=== PATIENT | male | born 1995 | race Caucasian/White ===

== ENCOUNTER 2021-01-08 13:35 | Emergency (ER) | payer SELFPAY ==
[2021-01-08 13:56] VITALS: BP 131/87; PULSE 93
[2021-01-08 14:59] LABS: CHLORIDE,CL 105 mEq/L (98-106); SODIUM,NA 141 mEq/L (136-145)
--- NOTE | 2021-01-08 15:00 | EDM.PDOC ---
ED HPI GENERAL MEDICAL PROBLEM - General Chief Complaint: General Stated Complaint: fentanyl addiction Time Seen by Provider: 01/08/21 14:05 Source of Information: Reports: Patient History Limitations: Reports: No Limitations - History of Present Illness INITIAL COMMENTS - FREE TEXT/NARRATIVE: This patient is a 25 year old male that reports he is here for help. He reports that he uses Fentanyl with his mother daily and they smoke it. He has been using over a year. Patient denies quiroz, dizziness, n, v, d, f, chest pain, shortness of breath. Denies homicidal or suicidal ideations. Onset: Other (1 year) Severity: Mild Improves with: Reports: None Worsens with: Reports: None Associated Symptoms: Reports: No Other Symptoms - Related Data Allergies Allergy/AdvReac Type Severity Reaction Status Date / Time Sulfa (Sulfonamide Allergy Cannot Verified 01/08/21 13:53 Antibiotics) Remember Home Meds: Home Meds . [No Known Home Meds] 12/16/15 [History] Past Medical History Psychiatric History: Reports: Anxiety, Depression, Other (See Below) Other Psychiatric History: suicidal thoughts - Past Surgical History HEENT Surgical History: Reports: Adenoidectomy, Tonsillectomy Social & Family History - Family History Cardiac: Reports: Hypertension - Living Situation & Occupation Living situation: Reports: with Family ED ROS GENERAL - Review of Systems Review Of Systems: See Below Constitutional: Reports: No Symptoms HEENT: Reports: No Symptoms Respiratory: Reports: No Symptoms Cardiovascular: Reports: No Symptoms Endocrine: Reports: No Symptoms GI/Abdominal: Reports: No Symptoms : Reports: No Symptoms Musculoskeletal: Reports: No Symptoms Skin: Reports: No Symptoms Neurological: Reports: No Symptoms Psychiatric: Reports: No Symptoms Hematologic/Lymphatic: Reports: No Symptoms Immunologic: Reports: No Symptoms ED EXAM, GENERAL - Physical Exam Exam: See Below Exam Limited By: No Limitations General Appearance: Alert, WD/WN, No Apparent Distress Eye Exam: Bilateral Eye: EOMI, Normal Inspection Ears: Normal External Exam, Normal Canal, Hearing Grossly Normal, Normal TMs Ear Exam: Bilateral Ear: Auricle Normal, Canal Normal, TM normal Nose: Normal Inspection, Normal Mucosa, No Blood Throat/Mouth: Normal Inspection, Normal Lips, Normal Teeth, Normal Gums, Normal Oropharynx, Normal Voice, No Airway Compromise Head: Atraumatic, Normocephalic Neck: Normal Inspection, Supple, Non-Tender, Full Range of Motion Respiratory/Chest: No Respiratory Distress, Lungs Clear, Normal Breath Sounds, No Accessory Muscle Use Cardiovascular: Normal Peripheral Pulses, Regular Rate, Rhythm, No Edema, No Gallop, No JVD, No Murmur, No Rub Peripheral Pulses: 2+: Radial (L), Radial (R), Posterior Tibial (L), Posterior Tibial (R) GI/Abdominal: Soft, Non-Tender Back Exam: Normal Inspection Extremities: Normal Inspection Neurological: Alert, Oriented, Normal Cognition, Normal Gait, No Motor/Sensory Deficits Psychiatric: Normal Affect, Normal Mood Skin Exam: Warm, Dry, Intact, Normal Color, No Rash Course - Vital Signs Last Recorded V/S: Last Vital Signs Temp 97.3 F 01/08/21 13:54 Pulse 93 01/08/21 13:54 Resp 18 01/08/21 13:54 BP 131/87 01/08/21 13:54 Pulse Ox 99 01/08/21 13:54 - Orders/Labs/Meds Labs: Laboratory Tests 01/08/21 01/08/21 01/08/21 Range/Units 14:24 14:30 14:30 WBC 10.7 (4.0-11.0) 10^3/uL RBC 5.08 (4.50-6.00) x10^6/uL Hgb 15.4 (14.0-18.0) g/dL Hct 44.7 (42.0-52.0) % MCV 88.0 (83.0-97.0) fL MCH 30.3 (27.0-32.0) pg MCHC 34.5 (32.0-36.0) g/dL RDW Coeff of Aby 11.9 (11.0-15.0) % Plt Count 309 (150-400) 10^3/uL Immature Gran % (Auto) 0.3 (0.0-4.9) % Neut % (Auto) 80.6 H (41-71) % Lymph % (Auto) 13.1 L (24-44) % [place] % (Auto) 4.7 (0-10) % Eos % (Auto) 0.8 (0-6) % Baso % (Auto) 0.5 (0-1) % Neut # (Auto) 8.59 H (1.80-8.00) x10^3/uL Lymph # (Auto) 1.40 (0.60-5.00) 10^3/uL [place] # (Auto) 0.50 (0.00-1.50) 10^3/uL Eos # (Auto) 0.09 (0.00-1.50) 10^3/uL Baso # (Auto) 0.05 (0.00-0.50) 10^3/uL Immature Gran # (Auto) 0.03 (0.00-0.49) 10^3/uL Sodium 141 (136-145) mEq/L Potassium 4.5 D (3.5-5.0) mEq/L Chloride 105 (98-106) mEq/L Carbon Dioxide 30 (21-32) mmol/L BUN 9 (7-18) mg/dL Creatinine 1.0 (0.7-1.3) mg/dL Est Cr Clr Drug Dosing 95.00 mL/min Estimated GFR (MDRD) > 60 (>=60) mL/min Glucose 97 (75-99) mg/dL Calcium 8.9 (8.4-10.1) mg/dL Total Bilirubin 0.2 (0.0-1.0) mg/dL AST 68 H (15-37) U/L ALT 31 (12-78) U/L Alkaline Phosphatase 99 (46-116) U/L Total Protein 7.2 (6.4-8.2) g/dL Albumin 4.2 (3.4-5.0) g/dL Urine Opiates Screen Negative (NEGATIVE) Ur Oxycodone Screen Negative (NEGATIVE) Urine Methadone Screen Negative (NEGATIVE) Ur Barbiturates Screen Negative (NEGATIVE) U Tricyclic Antidepress Negative (NEGATIVE) Ur Phencyclidine Scrn Negative (NEGATIVE) Ur Amphetamine Screen Negative (NEGATIVE) U Methamphetamines Scrn Negative (NEGATIVE) Urine MDMA Screen Negative (NEGATIVE) U Benzodiazepines Scrn Negative (NEGATIVE) Urine Cocaine Screen Negative (NEGATIVE) U Marijuana (THC) Screen Positive H (NEGATIVE) Ethyl Alcohol < 3 (0-3) mg/dL - Re-Assessments/Exams Free Text/Narrative Re-Assessment/Exam: 01/08/21 15:28 [facility] screener currently talking with patient. 01/08/21 16:14 [place] screener has called me. She reports patient is not homicidal and not suicidal. He would like more drug treatment then behavioral treatment. We are unable to ffer that. I called [facility] to ask if they have any resources for Katja. They reported they do not at this time. 01/08/21 16:49 I called [facility] Mendoza in [place], they have given me a phone number for the patient to call to set up out patient or in patient screening. He reports he will call. Will discharge the patient. Departure - Departure Time of Disposition: 16:50 Disposition: Home, Self-Care 01 Condition: Fair Clinical Impression: Substance abuse - Discharge Information *PRESCRIPTION DRUG MONITORING PROGRAM REVIEWED*: Not Applicable *COPY OF PRESCRIPTION DRUG MONITORING REPORT IN PATIENT SHAISTA: Not Applicable Instructions: Substance Use Disorder, Supporting Someone With Substance Use Disorder, Finding Treatment for Addiction, Recovering From Addiction Forms: ED Department Discharge Additional Instructions: Followup with Tennille Acosta in [place] by calling [phone] Return to the ER for emergencies Sepsis Event Note (ED) - Evaluation Sepsis Screening Result: No Definite Risk - Focused Exam Vital Signs: Vital Signs Temp Pulse Resp BP Pulse Ox 01/08/21 13:54 97.3 F 93 18 131/87 99 - Assessment/Plan Plan: PLEASE SEE RN NOTE FOR PFS
== END 2021-01-08 17:09 | disposition home or self-care (01) ==
LOC: CC.ED 13:35
DX: F19.10 Other psychoactive substance abuse, uncomplicated (principal); Z88.2 Allergy status to sulfonamides
CPT/HCPCS: 36415; 80053; 80305-QW; 80307; 85025; 99282